=== PATIENT | female | born 1960 | race Two or more races ===

== ENCOUNTER 2017-08-19 19:30 | Emergency (ER) | payer MEDICAID, OTHER ==
[~2017-08-19] VITALS: Ht 157.5 cm; Wt 75.7 kg
[~2017-08-19 19:30] MED LIST: IBUPROFEN600 MG ORAL; TYLENOL325 MG ORAL; ZOFRAN ODT4 MG ORAL
[2017-08-19] MEDS ORDERED: NKM (19:37)
[2017-08-19 19:40] VITALS: BP 120/68
[2017-08-19] MEDS ORDERED: Meclizine 25mg tab ORAL ONE (20:15)
[2017-08-19] MEDS ORDERED: Norco 5mg/325mg tab ORAL ONE (21:30)
[2017-08-19] MEDS ORDERED: NORCO 5-325 TA1 EACH ORAL (21:33)
[2017-08-19 21:45] VITALS: BP 116/69
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
--- NOTE | 2017-08-20 10:35 | Diagnostic Imaging Report ---
Indication: Headache Technique: Contiguous 5 mm thick transaxial imaging of the head obtained in a Siem[employer] Sensation [address] scanner. Soft tissue and bone windows generated. Automatic Exposure Control was utilized. Total Dose length Product (DLP): 1347.[address] Dose Index Volume (CTDIvol): 70.38 mGy Comparison: none Findings: The size and configuration of the cortical sulci, basal cisterns, and ventricles are within normal limits for age. There is no mass effect, midline shift, or edema identified. There is no evidence of acute hemorrhage or abnormal intra-axial or extra-axial fluid collections. The bones and soft tissues are unremarkable. The preliminary report suggested artifact in the left side of the basia versus small infarct. MRI was recommended for further evaluation. I do not disagree with this. Impression: No mass effect, edema or acute bleed. Probable artifact accounting for low density in the left side of the basia. MRI could be done for clarification as warranted clinically. [facility] has communicated the preliminary results to the Emergency Department. Their findings are largely concordant with this report. The CT scanner at [facility] is accredited by the [employer] and the scans are performed using dose optimization techniques as appropriate to a performed exam including Automatic Exposure control.
== END 2017-08-19 21:50 | disposition home or self-care (01) ==
LOC: EMR 21:48
DX: R51 Headache (principal)
CPT/HCPCS: 70450; 99284